=== PATIENT | female | born 1980 | race Hispanic/Latino ===

== ENCOUNTER 2018-07-02 20:24 | Emergency (ER) | payer OTHER ==
[~2018-07-02] VITALS: Ht 147.3 cm; Wt 81.6 kg
--- OUTSIDE RECORDS SUMMARY | 2018-07-02 20:27 | XMS REPORT ---
Author Author [facility] Address Unknown Phone Unavailable Care Team Providers Care Engagement Lead Name Role Phone Unavailable Unavailable Payers Payer Name Policy Type Policy Number Effective Date Expiration Date Problems This patient has no known problems. Allergies, Adverse Reactions, Alerts Allergy Name Allergy Type Status Severity Reaction(s) Onset Date Inactive Date Treating Clinician Comments No Known Allergies DA Active U 2018-05-26 00:00:00 No Known Allergies DA Active U 2014-06-02 00:00:00 Medications This patient has no known medications.
[2018-07-02 21:58] LABS: BASOPHILS % 0.4 % (0.0-1.0); EOSINOPHILS # (AUTO) 0.4 (0.0-0.4); HEMATOCRIT 39.3 % (34.2-44.1); HEMOGLOBIN 12.1 g/dL (12.0-16.0); LYMPHOCYTES # (AUTO) 1.8 (1.0-3.2); LYMPHOCYTES % 20.7 % (18.0-39.1); MEAN CORPUSCULAR HEMOGLOBIN 25.2 pg (28-32); MEAN CORPUSCULAR HGB CONC 30.8 g/dL (31-35); MEAN CORPUSCULAR VOLUME 81.7 fL (81-99); MONOCYTES # (AUTO) 0.7 (0.2-0.8); MONOCYTES % 8.2 % (4.4-11.3); NEUTROPHILS # (AUTO) 5.6 (2.1-6.9); NEUTROPHILS % 65.3 % (38.7-80.0); PLATELET COUNT 188 x10e3/uL (140-360); RED BLOOD COUNT 4.81 x10e6/uL (3.6-5.1); RED CELL DISTRIBUTION WIDTH 16.1 % (11.7-14.4)
[2018-07-02 22:16] LABS: ALANINE AMINOTRANSFERASE 13 IU/L (0-55); ALBUMIN 4.1 g/dL (3.5-5.0); ALKALINE PHOSPHATASE 79 IU/L (40-150); ANION GAP 17.2 mmol/L (8-16); BLOOD UREA NITROGEN 13 mg/dL (7-26); BUN/CREATININE RATIO 13 (6-25); CARBON DIOXIDE 27 mmol/L (22-29); CHLORIDE 101 mmol/L (98-107); CREATININE, SERUM 0.97 mg/dL (0.57-1.11); EST GLOMERULAR FILTRATION RATE > 60 ML/MIN (60-); GLUCOSE 96 mg/dL (74-118); POTASSIUM 3.2 mmol/L (3.5-5.1); SODIUM 142 mmol/L (136-145)
[2018-07-02] MEDS ORDERED: CALCIUM CHLORIDE 13.6 MEQ in SODIUM CHLORIDE 0.9% 100 ML 100 ML IV ONE ×4 (23:00)
[2018-07-03] MEDS ORDERED: CALCIUM CHLORIDE 10% 1.36 MEQ/ML 10ML SYR IV STA ×2 (00:21)
[2018-07-03] MEDS ORDERED: SODIUM CHLORIDE 0.9% 200 ML ONE (00:59)
[2018-07-03] MEDS ORDERED: ONDANSETRON HCL INJ 2 MG/ML VIAL IV STA (01:41)
[2018-07-03 02:07] VITALS: BP 108/58
== END 2018-07-03 02:31 | disposition home or self-care (01) ==
LOC: ER 20:24
DX: R42 Dizziness and giddiness (principal); R53.1 Weakness; G40.909 Epilepsy, unspecified, not intractable, without status epilepticus
CPT/HCPCS: 36415; 80053; 85025; 99283; J2405; J7050

== ENCOUNTER 2018-11-18 12:35 | Emergency (ER) | payer OTHER ==
[~2018-11-18] VITALS: Ht 147.3 cm; Wt 81.6 kg
--- NOTE | 2018-11-18 13:01 | NUR ---
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
[2018-11-18] MEDS ORDERED: SODIUM CHLORIDE 0.9% 1000ML 1,000 ML IV STA (13:07)
[2018-11-18] MEDS ORDERED: ONDANSETRON HCL INJ 2MG/ML 2ML 2 MG/ML VIAL IV NR (13:30)
[2018-11-18] MEDS ORDERED: KETOROLAC TROMETHAMINE 30 MG/ML VIAL IV ONE (13:30)
[2018-11-18] MEDS ORDERED: CEFTRIAXONE SOD 1 GM/NS 50 ML 50 ML IV ONE (13:30)
[2018-11-18 13:32] LABS: BASOPHILS % 0.3 % (0.0-1.0); EOSINOPHILS # (AUTO) 0.4 (0.0-0.4); EOSINOPHILS % 5.7 % (0.0-6.0); HEMATOCRIT 41.2 % (34.2-44.1); HEMOGLOBIN 12.7 g/dL (12.0-16.0); LYMPHOCYTES # (AUTO) 1.7 (1.0-3.2); LYMPHOCYTES % 22.9 % (18.0-39.1); MEAN CORPUSCULAR HEMOGLOBIN 24.5 pg (28-32); MEAN CORPUSCULAR HGB CONC 30.8 g/dL (31-35); MEAN CORPUSCULAR VOLUME 79.4 fL (81-99); MONOCYTES # (AUTO) 0.7 (0.2-0.8); MONOCYTES % 8.9 % (4.4-11.3); NEUTROPHILS # (AUTO) 4.6 (2.1-6.9); NEUTROPHILS % 61.8 % (38.7-80.0); PLATELET COUNT 192 x10e3/uL (140-360); RED BLOOD COUNT 5.19 x10e6/uL (3.6-5.1); RED CELL DISTRIBUTION WIDTH 17.4 % (11.7-14.4)
[2018-11-18 13:46] LABS: BILIRUBIN,URINE NEGATIVE (NEGATIVE); CLARITY,URINE HAZY (CLEAR); COLOR,URINE YELLOW (YELLOW); KETONES,URINE NEGATIVE (NEGATIVE); LEUKOCYTE ESTERASE ,URINE NEGATIVE (NEGATIVE); NITRITE,URINE NEGATIVE (NEGATIVE); PROTEIN,URINE DIPSTICK NEGATIVE (NEGATIVE); URINE UROBILINOGEN 0.2 mg/dL (0.2 - 1); WBC,URINE (MAN) 0-5 /HPF (0-5)
[2018-11-18 13:47] LABS: BACTERIA,URINE FEW /HPF; EPITHELIAL CELLS,URINE MODERATE /LPF; PREGNANCY TEST, URINE NEGATIVE (NEGATIVE); RBC,URINE 0-5 /HPF (0-5)
[2018-11-18] MEDS ORDERED: CEFTRIAXONE SOD 1 GM VIAL ONE (13:53)
[2018-11-18 13:59] LABS: ALANINE AMINOTRANSFERASE 16 IU/L (0-55); ALBUMIN 3.9 g/dL (3.5-5.0); ALBUMIN/GLOBULIN RATIO 1.1 (0.8-2.0); ALKALINE PHOSPHATASE 73 IU/L (40-150); ANION GAP 13.5 mmol/L (8-16); BLOOD UREA NITROGEN 12 mg/dL (7-26); BUN/CREATININE RATIO 12 (6-25); CALCIUM 7.6 mg/dL (8.4-10.2); CARBON DIOXIDE 29 mmol/L (22-29); CHLORIDE 100 mmol/L (98-107); CREATININE, SERUM 1.01 mg/dL (0.57-1.11); EST GLOMERULAR FILTRATION RATE > 60 ML/MIN (60-); POTASSIUM 3.5 mmol/L (3.5-5.1); SODIUM 139 mmol/L (136-145)
[2018-11-18] MEDS ORDERED: SODIUM CHLORIDE 0.9% 50ML 50 ML ONE (14:01)
[2018-11-18] MEDS ORDERED: IOPAMIDOL 370 MG/ML 200 ML INFUS..BTL INJ ONE (14:01)
[2018-11-18 14:07] LABS: GLUCOSE 57 mg/dL (74-118)
[2018-11-18] MEDS ORDERED: DEXTROSE 50% SYRINGE 50 ML IV ONE (14:11)
[2018-11-18] MEDS ORDERED: DEXTROSE 50% SYRINGE 50 ML IV STA (14:16)
--- NOTE | 2018-11-18 15:55 | Diagnostic Imaging Report ---
EXAM: CT of the abdomen and pelvis WITH contrast HISTORY: r/o appy, abdominal pain, nausea, right lower quadrant pain COMPARISON: None. TECHNIQUE: The abdomen and pelvis were scanned utilizing a multidetector helical scanner. Coronal and sagittal reformats are provided. PROTOCOL: Routine IV CONTRAST: 100 cc of Isovue-370. ORAL CONTRAST: None, which limits sensitivity and specificity of the exam. RADIATION DOSE: Total DLP: 703.1 mGy*cm Estimated effective dose: (DLP x 0.015 x size factor) Dose modulation, iterative reconstruction, and/or weight based adjustment of the mA/kV was utilized to reduce the radiation dose to as low as reasonably achievable. COMPLICATIONS: None FINDINGS: LOWER THORAX: Small sliding hiatal hernia. HEPATOBILIARY: No mass. No biliary dilation. No calcified gallstone. SPLEEN: No splenomegaly. PANCREAS: No focal masses or ductal dilatation. ADRENALS: No discrete adrenal nodule. KIDNEYS/URETERS: No hydronephrosis, stones, or definite solid mass lesions. PELVIC ORGANS/BLADDER: The visualized pelvic organs appear unremarkable. GI TRACT: No dilation or wall thickening identified. The appendix is normal. PERITONEUM / RETROPERITONEUM: No free air or fluid. LYMPH NODES: No pathologically enlarged lymph node. VESSELS: Unremarkable. BONES: No aggressive osseous lesion or acute fracture. SOFT TISSUES: Very small fat-containing umbilical hernia, without associated inflammatory changes to suggest vascular compromise. IMPRESSION: 1. Small sliding hiatal hernia. 2. There is small fat-containing a focal hernia. Signed by: Dr. Kush Ha D.O., M.M.M. on 11/18/2018 3:51 PM
== END 2018-11-18 17:04 | disposition home or self-care (01) ==
LOC: ER 12:35
DX: R10.31 Right lower quadrant pain (principal); R10.11 Right upper quadrant pain; R11.0 Nausea; I10 Essential (primary) hypertension; G40.909 Epilepsy, unspecified, not intractable, without status epilepticus
CPT/HCPCS: 36415; 74177; 80053; 81001; 81025; 82948; 85025; 87086; 99284; J0696 ×2; J1885; J2405; J7030; J7799; Q9967

== ENCOUNTER 2018-11-29 14:05 | Emergency (ER) | payer OTHER ==
[~2018-11-29] VITALS: Ht 147.3 cm; Wt 81.6 kg
[2018-11-29] MEDS ORDERED: MORPHINE SULFATE INJ 4 MG/ML INJ 1ML IV STA (14:27)
[2018-11-29 15:58] LABS: BASOPHILS % 0.5 % (0.0-1.0); EOSINOPHILS # (AUTO) 0.1 (0.0-0.4); EOSINOPHILS % 1.9 % (0.0-6.0); HEMATOCRIT 40.2 % (34.2-44.1); HEMOGLOBIN 12.5 g/dL (12.0-16.0); LYMPHOCYTES # (AUTO) 1.3 (1.0-3.2); LYMPHOCYTES % 23.3 % (18.0-39.1); MEAN CORPUSCULAR HEMOGLOBIN 24.6 pg (28-32); MEAN CORPUSCULAR HGB CONC 31.1 g/dL (31-35); MEAN CORPUSCULAR VOLUME 79.1 fL (81-99); MONOCYTES # (AUTO) 0.6 (0.2-0.8); MONOCYTES % 10.5 % (4.4-11.3); NEUTROPHILS # (AUTO) 3.6 (2.1-6.9); NEUTROPHILS % 63.4 % (38.7-80.0); PLATELET COUNT 162 x10e3/uL (140-360); RED BLOOD COUNT 5.08 x10e6/uL (3.6-5.1); RED CELL DISTRIBUTION WIDTH 16.9 % (11.7-14.4)
[2018-11-29 16:14] LABS: CLARITY,URINE CLEAR (CLEAR); COLOR,URINE YELLOW (YELLOW); LEUKOCYTE ESTERASE ,URINE NEGATIVE (NEGATIVE); NITRITE,URINE NEGATIVE (NEGATIVE); PROTEIN,URINE DIPSTICK NEGATIVE (NEGATIVE)
[2018-11-29 16:15] LABS: BILIRUBIN,URINE NEGATIVE (NEGATIVE); KETONES,URINE NEGATIVE (NEGATIVE); URINE UROBILINOGEN 0.2 mg/dL (0.2 - 1)
[2018-11-29 16:20] LABS: ANION GAP 15.3 mmol/L (8-16); CALCIUM 7.9 mg/dL (8.4-10.2); CREATININE, SERUM 1.1 mg/dL (0.57-1.11); POTASSIUM 4.3 mmol/L (3.5-5.1)
[2018-11-29 16:30] LABS: BACTERIA,URINE FEW /HPF; EPITHELIAL CELLS,URINE MODERATE /LPF; WBC,URINE (MAN) 0-5 /HPF (0-5)
[2018-11-29] MEDS ORDERED: SODIUM CHLORIDE 0.9% 1000ML 1,000 ML IV SCH (16:30)
[2018-11-29 16:31] LABS: AMORPHOUS SEDIMENT,URINE MODERATE (FEW)
--- NOTE | 2018-11-29 19:16 | Diagnostic Imaging Report ---
EXAM: CT of the abdomen and pelvis WITH contrast HISTORY: Right lower quadrant pain, stomach pain, rule out incarcerated hernia COMPARISON: CT of the abdomen and pelvis November 18, 2018. TECHNIQUE: The abdomen and pelvis were scanned utilizing a multidetector helical scanner. Coronal and sagittal reformats are provided. PROTOCOL: Routine IV CONTRAST: 20 cc of Isovue-370, which partially limits the evaluation. ORAL CONTRAST: None, which limits sensitivity and specificity of the exam. RADIATION DOSE: Total DLP: 646.88 mGy*cm Estimated effective dose: (DLP x 0.015 x size factor) Dose modulation, iterative reconstruction, and/or weight based adjustment of the mA/kV was utilized to reduce the radiation dose to as low as reasonably achievable. COMPLICATIONS: The IV malfunctioned during the injection of contrast, the prostate 20 cc of contrast was injected and the remainder leaked external to the patient. FINDINGS: The contrast is predominantly within the renal collecting systems, ureters, and urinary bladder. LOWER THORAX: Stable small sliding hiatal hernia. HEPATOBILIARY: No mass. No biliary dilation. No calcified gallstone. SPLEEN: No splenomegaly. PANCREAS: No focal masses or ductal dilatation. ADRENALS: No discrete adrenal nodule. KIDNEYS/URETERS: No hydronephrosis or definite solid mass lesions. The ureters are opacified and nondilated. PELVIC ORGANS/BLADDER: Moderate distention of the partially opacified urinary bladder, no focal lesion is identified. GI TRACT: No dilation or wall thickening identified. The appendix remains normal. The stomach is decompressed, which limits evaluation. PERITONEUM / RETROPERITONEUM: No free air or fluid. LYMPH NODES: No pathologically enlarged lymph node. VESSELS: Unremarkable. BONES: No aggressive osseous lesion or acute fracture. T9 butterfly type vertebral body. SOFT TISSUES: Stable appearing very small fat-containing umbilical hernia, without associated inflammatory changes to suggest vascular compromise. IMPRESSION: 1. Stable appearing very small fat-containing hernia, no CT evidence to suggest associated vascular compromise, correlate with physical exam. 2. Stable small sliding hiatal hernia. 3. Normal appendix. 4. No acute CT abnormality of the abdomen or pelvis. Signed by: Dr. Kush Ha D.O., M.M.M. on 11/29/2018 7:13 PM
[2018-11-29] MEDS ORDERED: ULTRAM50 MG PO (19:32)
[2018-11-29 20:07] VITALS: BP 118/79
[2018-11-29] MEDS ORDERED: SODIUM CHLORIDE 0.9% 50ML 50 ML ONE (22:43)
[2018-11-29] MEDS ORDERED: IOPAMIDOL 370 MG/ML 200 ML INFUS..BTL INJ ONE (22:44)
== END 2018-11-29 19:58 | disposition home or self-care (01) ==
LOC: ER 14:05
DX: R10.31 Right lower quadrant pain (principal); K42.9 Umbilical hernia without obstruction or gangrene; I10 Essential (primary) hypertension; G40.909 Epilepsy, unspecified, not intractable, without status epilepticus
CPT/HCPCS: 36415; 74177; 80053; 81001; 81025; 82150; 83690; 83735; 85025; 99284; Q9967

== ENCOUNTER 2019-01-26 11:25 | Emergency (ER) | payer OTHER ==
[~2019-01-26] VITALS: Ht 147.3 cm; Wt 81.6 kg
[~2019-01-26 11:25] MED LIST: ULTRAM50 MG PO
--- NOTE | 2019-01-26 13:19 | NUR ---
SEEN BY CHIP SEPARATOR, BUT NOT INFORMED PT OF MSE, PT LEFT PRIOR TO BEING INFORMED AND LEFT.
== END 2019-01-26 13:19 | disposition left against medical advice (07) ==
LOC: ER 11:25
DX: R10.9 Unspecified abdominal pain (principal)

== ENCOUNTER 2019-06-30 17:54 | Emergency (ER) | payer OTHER ==
[~2019-06-30] VITALS: Ht 147.3 cm; Wt 81.6 kg
--- NOTE | 2019-06-30 19:42 | Diagnostic Imaging Report ---
EXAMINATION: Head CT without contrast. HISTORY:Headache, right facial twitching and right hand numbness. COMPARISON:None. TECHNIQUE: Multidetector axial images were obtained from the foramen magnum to the vertex without contrast. The images were reconstructed using brain and bone algorithms. Thin section brain images were reformatted into coronal and sagittal planes. Dose modulation, iterative reconstruction, and/or weight based adjustment of the mA/kV was utilized to reduce the radiation dose to as low as reasonably achievable. Intravenous contrast: None IMAGE QUALITY: Acceptable. FINDINGS: Skull/scalp: No lytic or blastic. lesions. No surgical changes. Parenchyma: Bilateral symmetric coarse calcifications in the lentiform nuclei, caudate head, lateral aspect of bilateral thalami and cerebellar dentate nuclei. No acute hemorrhage, mass or acute major vascular territorial infarct. Arteries: No density suggestive of thrombosis. Dural sinuses: No abnormal density suggestive of thrombosis. Ventricles: No hydrocephalus or displacement. Extra-axial spaces: No abnormal density. Brain volume: Normal for age. Craniocervical junction: No mass, Chiari malformation, or basilar invagination. Sella: No mass. Paranasal/mastoid sinuses: Imaged portions unremarkable. IMPRESSION: 1. No acute intracranial abnormality, particularly no acute hemorrhage, mass or acute major vascular territorial infarct. 2. 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 Signed by: Dr. Ginger Griffith M.D. on 06/30/2019 7:39 PM
[2019-06-30 20:10] LABS: BASOPHILS % 0.3 % (0.0-1.0); EOSINOPHILS # (AUTO) 0.3 (0.0-0.4); EOSINOPHILS % 2.7 % (0.0-6.0); HEMATOCRIT 38.7 % (34.2-44.1); HEMOGLOBIN 11.7 g/dL (12.0-16.0); LYMPHOCYTES # (AUTO) 1.8 (1.0-3.2); LYMPHOCYTES % 19.3 % (18.0-39.1); MEAN CORPUSCULAR HEMOGLOBIN 22.7 pg (28-32); MEAN CORPUSCULAR HGB CONC 30.2 g/dL (31-35); MEAN CORPUSCULAR VOLUME 75.1 fL (81-99); MONOCYTES # (AUTO) 0.7 (0.2-0.8); MONOCYTES % 7.7 % (4.4-11.3); NEUTROPHILS # (AUTO) 6.6 (2.1-6.9); NEUTROPHILS % 69.7 % (38.7-80.0); PLATELET COUNT 179 x10e3/uL (140-360); RED BLOOD COUNT 5.15 x10e6/uL (3.6-5.1); RED CELL DISTRIBUTION WIDTH 16.7 % (11.7-14.4)
[2019-06-30 20:25] LABS: ALBUMIN 3.7 g/dL (3.5-5.0); ALBUMIN/GLOBULIN RATIO 0.9 (0.8-2.0); ANION GAP 16.9 mmol/L (8-16); CREATININE, SERUM 1.19 mg/dL (0.57-1.11); POTASSIUM 3.9 mmol/L (3.5-5.1)
[2019-06-30 20:35] LABS: CALCIUM 6.9 mg/dL (8.4-10.2)
[2019-06-30] MEDS ORDERED: CALCIUM GLUCONATE 10% INJ 4.65 MEQ in SODIUM CHLORIDE 0.9% 50ML 50 ML IV ONE (20:45)
[2019-06-30 21:26] LABS: CLARITY,URINE CLEAR (CLEAR); COLOR,URINE YELLOW (YELLOW); LEUKOCYTE ESTERASE ,URINE NEGATIVE (NEGATIVE)
[2019-06-30 21:27] LABS: BILIRUBIN,URINE NEGATIVE (NEGATIVE); KETONES,URINE NEGATIVE (NEGATIVE); NITRITE,URINE NEGATIVE (NEGATIVE); PROTEIN,URINE DIPSTICK NEGATIVE (NEGATIVE); URINE UROBILINOGEN 0.2 mg/dL (0.2 - 1)
[2019-06-30 21:28] LABS: BACTERIA,URINE RARE /HPF; EPITHELIAL CELLS,URINE FEW /LPF; RBC,URINE 0-5 /HPF (0-5); WBC,URINE (MAN) 0-5 /HPF (0-5)
[2019-06-30 22:44] VITALS: BP 101/71
== END 2019-06-30 22:49 | disposition home or self-care (01) ==
LOC: ER 17:54
DX: R53.1 Weakness (principal); E83.51 Hypocalcemia
CPT/HCPCS: 36415; 70450; 80053; 81001; 84702; 85025; 93005; 99284; J0610

== ENCOUNTER → 2019-07-25 | Outpatient (CLI) | payer OTHER ==
--- NOTE | 2019-07-25 12:37 | Diagnostic Imaging Report ---
EXAMINATION: HAND LEFT 2 VIEWS INDICATION: Finger pain COMPARISON: None FINDINGS: No acute fracture or dislocation. Alignment appears anatomic. The soft tissues appear unremarkable. No substantial degenerative change. IMPRESSION: No acute osseous injury. Signed by: John Hernandes MD on 07/25/2019 12:34 PM
== END ==
LOC: RAD 11:43
PROVIDERS: ATTEND Community Health Worker
DX: M79.645 Pain in left finger(s) (principal)

== ENCOUNTER 2021-07-14 16:28 | Emergency (ER) | payer OTHER ==
[~2021-07-14] VITALS: Ht 147.3 cm; Wt 81.6 kg
[2021-07-14] MEDS ORDERED: ACETAMINOPHEN 325 MG TAB ONE (17:11)
[2021-07-14] MEDS ORDERED: ACETAMINOPHEN 325 MG TAB PO ONE (17:15)
[2021-07-14] MEDS ORDERED: TESSALON PERLE100 MG PO (18:39)
[2021-07-14] MEDS ORDERED: PROAIR HFA INH8.5 GM PO (18:39)
== END 2021-07-14 19:20 | disposition home or self-care (01) ==
LOC: ER 17:00
DX: U07.1 COVID-19 (principal); R50.9 Fever, unspecified; R05.9 Cough, unspecified; I10 Essential (primary) hypertension; E11.9 Type 2 diabetes mellitus without complications; G40.909 Epilepsy, unspecified, not intractable, without status epilepticus; F41.9 Anxiety disorder, unspecified; K21.9 Gastro-esophageal reflux disease without esophagitis
CPT/HCPCS: 71045; 99283; U0002

== ENCOUNTER 2021-07-19 10:04 | Emergency (ER) | payer OTHER ==
[~2021-07-19] VITALS: Ht 147.3 cm; Wt 81.6 kg
[~2021-07-19 10:04] MED LIST changes: +PROAIR HFA INH8.5 GM PO; +TESSALON PERLE100 MG PO
== END 2021-07-19 12:48 | disposition home or self-care (01) ==
LOC: ER 10:52
DX: U07.1 COVID-19 (principal); R50.9 Fever, unspecified; R05.9 Cough, unspecified; I10 Essential (primary) hypertension; E11.9 Type 2 diabetes mellitus without complications; G40.909 Epilepsy, unspecified, not intractable, without status epilepticus; F41.9 Anxiety disorder, unspecified; K21.9 Gastro-esophageal reflux disease without esophagitis; J45.909 Unspecified asthma, uncomplicated
CPT/HCPCS: 99283

== ENCOUNTER 2025-04-20 10:48 | Emergency (ER) | payer MEDICARE, OTHER ==
[~2025-04-20] VITALS: Ht 144.8 cm; Wt 93.4 kg
[2025-04-20 10:53] VITALS: PULSE 121; RESP 18; TEMP 97.9; O2SAT 95
[2025-04-20] MEDS ORDERED: ULTRAM 50MG50 MG PO ×2 (11:10→11:26)
[2025-04-20] MEDS ORDERED: PERIDEX473 M1 PO (11:10)
[2025-04-20] MEDS: KETOROLAC TROMETHAMINE 30 MG/ML VIAL IM STA (11:10)
[2025-04-20] MEDS ORDERED: METRONIDAZOLE500 MG PO (11:10)
[2025-04-20] MEDS ORDERED: AMOXICILLIN500 MG PO (11:10)
== END 2025-04-20 11:46 | disposition home or self-care (01) ==
LOC: ER 10:58
DX: K08.89 Other specified disorders of teeth and supporting structures (principal); K02.9 Dental caries, unspecified; D82.1 Di George's syndrome; I10 Essential (primary) hypertension; E11.9 Type 2 diabetes mellitus without complications; J45.909 Unspecified asthma, uncomplicated; G40.909 Epilepsy, unspecified, not intractable, without status epilepticus; K21.9 Gastro-esophageal reflux disease without esophagitis; F41.9 Anxiety disorder, unspecified
CPT/HCPCS: 99283; J1885